=== PATIENT | female | born 2000 | race Caucasian/White ===

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

== ENCOUNTER 2020-08-08 10:41 | Inpatient (IN) | payer BC, OTHER ==
[2020-08-08] MEDS ORDERED: SODIUM CHLORIDE 0.9% 1,000 ML IV STA (10:59)
--- NOTE | 2020-08-08 11:03 | ED ---
Overdose HPI - General Chief Complaint: Overdose Stated Complaint: overdose Time Seen by Provider: 08/08/20 10:47 Source: patient, EMS, RN notes reviewed Mode of arrival: EMS Limitations: no limitations - History of Present Illness Initial Comments: Patient is a 19-year-old female that presents to the emergency department via EMS after ingesting 20 tablets of Midol. This equates to approximately 10 g of acetaminophen. She notes that she has struggled with depression his head attempts in the past at suicide. She notes that increased life stressors such as parents boyfriend problems cause her to have the suicidal thoughts and plan. She denied any pain while sitting up in bed during the exam interview. She noted that she took all the tablets around 9:45 AM this morning. She denied any chest pain short of breath headache nausea vomiting diarrhea constipation fever fatigue chills - Related Data Home Medications Medication Instructions Recorded Confirmed FLUoxetine HCL [PROzac] 20 mg PO HS 08/08/20 08/08/20 Allergies Allergy/AdvReac Type Severity Reaction Status Date / Time Sulfa (Sulfonamide Allergy Nausea & Verified 08/08/20 13:16 Antibiotics) Vomiting & Diarrhea sulfadiazine Allergy Nausea & Verified 08/08/20 13:16 Vomiting & Diarrhea Review of Systems ROS Statement: Those systems with pertinent positive or pertinent negative responses have been documented in the HPI. ROS Other: All systems not noted in ROS Statement are negative. Past Medical History Past Medical History: No Reported History History of Any Multi-Drug Resistant Organisms: None Reported Past Surgical History: No Surgical Hx Reported Past Psychological History: Anxiety, Depression Smoking Status: Never smoker Past Alcohol Use History: None Reported Past Drug Use History: None Reported General Exam Limitations: no limitations General appearance: alert, in no apparent distress, obese Head exam: Present: atraumatic, normocephalic, normal inspection Neck exam: Present: normal inspection. Absent: tenderness, meningismus, lymphadenopathy Respiratory exam: Present: normal lung sounds bilaterally. Absent: respiratory distress, wheezes, rales, rhonchi, stridor Cardiovascular Exam: Present: regular rate, normal rhythm, normal heart sounds. Absent: systolic murmur, diastolic murmur, rubs, gallop, clicks GI/Abdominal exam: Present: soft, normal bowel sounds. Absent: distended, tenderness, guarding, rebound, rigid Extremities exam: Present: normal inspection, full ROM, normal capillary refill. Absent: tenderness, pedal edema, joint swelling, calf tenderness Neurological exam: Present: alert, oriented X3, CN II-XII intact Psychiatric exam: Present: normal affect, depressed, suicidal ideation (With plan) Skin exam: Present: warm, dry, intact, normal color. Absent: rash Course Vital Signs 08/08/20 08/08/20 08/08/20 10:42 12:00 13:00 Temperature 99.1 F Pulse Rate 101 H 98 91 Respiratory 18 18 16 Rate Blood Pressure 128/77 134/81 121/75 O2 Sat by Pulse 98 100 100 Oximetry 08/08/20 14:26 Temperature 99.2 F Pulse Rate 96 Respiratory 18 Rate Blood Pressure 129/72 O2 Sat by Pulse 100 Oximetry Medical Decision Making - Medical Decision Making 19-year-old female with suicidal ideations that took 20 mg of Midol roughly equated 10 g of Tylenol. EKG, 100 mg activated charcoal, acetaminophen level, CBC, CMP, PT/INR and PTT, aspirin level, test, urine drug screen, alcohol serum ordered. Nurse will call poison control for further instructions. Tylenol level IV hours after ingestion 49.2. Patient is cleared to see EPS. Case discussed with Dr. Gurrola - Lab Data Result diagrams: 08/08/20 10:57 08/08/20 10:57 Lab Results 08/08/20 08/08/20 08/08/20 Range/Units 10:57 10:57 10:57 WBC 11.6 H (4.0-11.0) k/uL RBC 4.91 (3.80-5.40) m/uL Hgb 12.6 (11.4-16.0) gm/dL Hct 37.4 (34.0-46.0) % MCV 76.3 L (80.0-100.0) fL MCH 25.7 (25.0-35.0) pg MCHC 33.7 (31.0-37.0) g/dL RDW 13.7 (11.5-15.5) % Plt Count 292 (150-450) k/uL MPV 7.5 Neutrophils % 69 % Lymphocytes % 24 % Monocytes % 4 % Eosinophils % 1 % Basophils % 0 % Neutrophils # 8.0 H (1.3-7.7) k/uL Lymphocytes # 2.8 (1.0-4.8) k/uL Monocytes # 0.5 (0-1.0) k/uL Eosinophils # 0.1 (0-0.7) k/uL Basophils # 0.1 (0-0.2) k/uL PT 10.2 (9.0-12.0) sec INR 0.9 (<1.2) APTT 22.5 (22.0-30.0) sec Sodium 142 (137-145) mmol/L Potassium 3.3 L (3.5-5.1) mmol/L Chloride 107 (98-107) mmol/L Carbon Dioxide 24 (22-30) mmol/L Anion Gap 11 mmol/L BUN 16 (7-17) mg/dL Creatinine 0.79 (0.52-1.04) mg/dL Est GFR (CKD-EPI)AfAm >90 (>60 ml/min/1.73 sqM) Est GFR (CKD-EPI)NonAf >90 (>60 ml/min/1.73 sqM) Glucose 116 H (74-99) mg/dL Calcium 9.2 (8.4-10.2) mg/dL Magnesium (1.6-2.3) mg/dL Total Bilirubin 0.5 (0.2-1.3) mg/dL AST 31 (14-36) U/L ALT 27 (4-34) U/L Alkaline Phosphatase 70 (38-126) U/L Total Protein 7.6 (6.3-8.2) g/dL Albumin 4.6 (3.5-5.0) g/dL Salicylates <1.0 mg/dL Urine Opiates Screen (NotDetected) Ur Oxycodone Screen (NotDetected) Urine Methadone Screen (NotDetected) Ur Propoxyphene Screen (NotDetected) Acetaminophen 82.7 H* ug/mL Ur Barbiturates Screen (NotDetected) U Tricyclic Antidepress (NotDetected) Ur Phencyclidine Scrn (NotDetected) Ur Amphetamines Screen (NotDetected) U Methamphetamines Scrn (NotDetected) U Benzodiazepines Scrn (NotDetected) Urine Cocaine Screen (NotDetected) U Marijuana (THC) Screen (NotDetected) Serum Alcohol <10 mg/dL Influenza Type A (PCR) (Not Detectd) Influenza Type B (PCR) (Not Detectd) RSV (PCR) (Not Detectd) SARS-CoV-2 (PCR) (Not Detectd) 08/08/20 08/08/20 08/08/20 Range/Units 10:57 11:04 14:25 WBC (4.0-11.0) k/uL RBC (3.80-5.40) m/uL Hgb (11.4-16.0) gm/dL Hct (34.0-46.0) % MCV (80.0-100.0) fL MCH (25.0-35.0) pg MCHC (31.0-37.0) g/dL RDW (11.5-15.5) % Plt Count (150-450) k/uL MPV Neutrophils % % Lymphocytes % % Monocytes % % Eosinophils % % Basophils % % Neutrophils # (1.3-7.7) k/uL Lymphocytes # (1.0-4.8) k/uL Monocytes # (0-1.0) k/uL Eosinophils # (0-0.7) k/uL Basophils # (0-0.2) k/uL PT (9.0-12.0) sec INR (<1.2) APTT (22.0-30.0) sec Sodium (137-145) mmol/L Potassium (3.5-5.1) mmol/L Chloride (98-107) mmol/L Carbon Dioxide (22-30) mmol/L Anion Gap mmol/L BUN (7-17) mg/dL Creatinine (0.52-1.04) mg/dL Est GFR (CKD-EPI)AfAm (>60 ml/min/1.73 sqM) Est GFR (CKD-EPI)NonAf (>60 ml/min/1.73 sqM) Glucose (74-99) mg/dL Calcium (8.4-10.2) mg/dL Magnesium 1.9 (1.6-2.3) mg/dL Total Bilirubin (0.2-1.3) mg/dL AST (14-36) U/L ALT (4-34) U/L Alkaline Phosphatase (38-126) U/L Total Protein (6.3-8.2) g/dL Albumin (3.5-5.0) g/dL Salicylates mg/dL Urine Opiates Screen Not Detected (NotDetected) Ur Oxycodone Screen Not Detected (NotDetected) Urine Methadone Screen Not Detected (NotDetected) Ur Propoxyphene Screen Not Detected (NotDetected) Acetaminophen 49.2 ug/mL Ur Barbiturates Screen Not Detected (NotDetected) U Tricyclic Antidepress Not Detected (NotDetected) Ur Phencyclidine Scrn Not Detected (NotDetected) Ur Amphetamines Screen Not Detected (NotDetected) U Methamphetamines Scrn Not Detected (NotDetected) U Benzodiazepines Scrn Detected H (NotDetected) Urine Cocaine Screen Not Detected (NotDetected) U Marijuana (THC) Screen Not Detected (NotDetected) Serum Alcohol mg/dL Influenza Type A (PCR) (Not Detectd) Influenza Type B (PCR) (Not Detectd) RSV (PCR) (Not Detectd) SARS-CoV-2 (PCR) (Not Detectd) 08/08/20 Range/Units Unknown WBC (4.0-11.0) k/uL RBC (3.80-5.40) m/uL Hgb (11.4-16.0) gm/dL Hct (34.0-46.0) % MCV (80.0-100.0) fL MCH (25.0-35.0) pg MCHC (31.0-37.0) g/dL RDW (11.5-15.5) % Plt Count (150-450) k/uL MPV Neutrophils % % Lymphocytes % % Monocytes % % Eosinophils % % Basophils % % Neutrophils # (1.3-7.7) k/uL Lymphocytes # (1.0-4.8) k/uL Monocytes # (0-1.0) k/uL Eosinophils # (0-0.7) k/uL Basophils # (0-0.2) k/uL PT (9.0-12.0) sec INR (<1.2) APTT (22.0-30.0) sec Sodium (137-145) mmol/L Potassium (3.5-5.1) mmol/L Chloride (98-107) mmol/L Carbon Dioxide (22-30) mmol/L Anion Gap mmol/L BUN (7-17) mg/dL Creatinine (0.52-1.04) mg/dL Est GFR (CKD-EPI)AfAm (>60 ml/min/1.73 sqM) Est GFR (CKD-EPI)NonAf (>60 ml/min/1.73 sqM) Glucose (74-99) mg/dL Calcium (8.4-10.2) mg/dL Magnesium (1.6-2.3) mg/dL Total Bilirubin (0.2-1.3) mg/dL AST (14-36) U/L ALT (4-34) U/L Alkaline Phosphatase (38-126) U/L Total Protein (6.3-8.2) g/dL Albumin (3.5-5.0) g/dL Salicylates mg/dL Urine Opiates Screen (NotDetected) Ur Oxycodone Screen (NotDetected) Urine Methadone Screen (NotDetected) Ur Propoxyphene Screen (NotDetected) Acetaminophen ug/mL Ur Barbiturates Screen (NotDetected) U Tricyclic Antidepress (NotDetected) Ur Phencyclidine Scrn (NotDetected) Ur Amphetamines Screen (NotDetected) U Methamphetamines Scrn (NotDetected) U Benzodiazepines Scrn (NotDetected) Urine Cocaine Screen (NotDetected) U Marijuana (THC) Screen (NotDetected) Serum Alcohol mg/dL Influenza Type A (PCR) Not Detected (Not Detectd) Influenza Type B (PCR) Not Detected (Not Detectd) RSV (PCR) Not Detected (Not Detectd) SARS-CoV-2 (PCR) Not Detected (Not Detectd) - EKG Data -: EKG Interpreted by Ia EKG shows normal: sinus rhythm Rate: tachycardia EKG Comments: Ventricular rate 106 bpm, OK interval 120 ms, QRS duration 88 ms, QT/QTc 422/560 ms, PRT axes 67/34/18. Sinus tachycardia, otherwise normal ECG. Disposition Clinical Impression: Acetaminophen overdose, Suicide attempt Disposition: ADMITTED IP TO THIS HOSP Condition: Stable Instructions (If sedation given, give patient instructions): Adult Overdose (ED) Is patient prescribed a controlled substance at d/c from ED?: No Referrals: Cal Champion MD [Primary Care Provider] - 1-2 days Time of Disposition: 15:51
[2020-08-08 11:16] LABS: Basophils # (A) 0.1 k/uL (0-0.2); Basophils % (A) 0 %; Eosinophils # (A) 0.1 k/uL (0-0.7); Eosinophils % (A) 1 %; HCT 37.4 % (34.0-46.0); HGB 12.6 gm/dL (11.4-16.0); Lymphocytes # (A) 2.8 k/uL (1.0-4.8); Lymphocytes % (A) 24 %; MCH 25.7 pg (25.0-35.0); MCHC 33.7 g/dL (31.0-37.0); MCV 76.3 fL (80.0-100.0); Mean Platelet Volume 7.5; Monocytes # (A) 0.5 k/uL (0-1.0); Monocytes % (A) 4 %; Neutrophils % (A) 69 %; Platelet Count 292 k/uL (150-450); RBC 4.91 m/uL (3.80-5.40); RDW 13.7 % (11.5-15.5); WBC 11.6 k/uL (4.0-11.0)
[2020-08-08 11:39] LABS: ALT 27 U/L (4-34); AST 31 U/L (14-36); African American GFR (CKD) >90 (>60 ml/min/1.73 sqM); Albumin 4.6 g/dL (3.5-5.0); Alcohol <10 mg/dL; Alkaline Phosphatase 70 U/L (38-126); Anion Gap 11 mmol/L; Blood Urea Nitrogen 16 mg/dL (7-17); Calcium 9.2 mg/dL (8.4-10.2); Carbon Dioxide 24 mmol/L (22-30); Chloride 107 mmol/L (98-107); Glucose 116 mg/dL (74-99); Non-African American GFR(CKD) >90 (>60 ml/min/1.73 sqM); Potassium 3.3 mmol/L (3.5-5.1); Salicylate <1.0 mg/dL; Sodium 142 mmol/L (137-145); Total Bilirubin 0.5 mg/dL (0.2-1.3); Total Protein 7.6 g/dL (6.3-8.2)
[2020-08-08 11:43] LABS: Acetaminophen 82.7 ug/mL
[2020-08-08 11:57] LABS: INR 0.9 (<1.2); Partial Thromboplastin Time 22.5 sec (22.0-30.0); Prothrombin Time 10.2 sec (9.0-12.0)
[2020-08-08] MEDS ORDERED: POTASSIUM CHLORIDE ER 20 MEQ TAB.ER PO STA (12:00)
[2020-08-08 15:41] LABS: Amphetamine Screen,Urine Not Detected (NotDetected); Barbiturate Screen,Urine Not Detected (NotDetected); Benzodiazepines Screen,Urine Detected (NotDetected); Cocaine Screen,Urine Not Detected (NotDetected); Methadone Screen, Urine Not Detected (NotDetected); Opiate Screen,Urine Not Detected (NotDetected); Oxycodone Screen, Urine Not Detected (NotDetected); Phencyclidine Screen,Urine Not Detected (NotDetected); Tricyclic Antidepressant,Urine Not Detected (NotDetected); Urn Cannabinoid Scrn Not Detected (NotDetected)
[2020-08-08] MEDS ORDERED: MAG HYDROX/AL HYDROX/SIMETH 30 ML CUP PO PRN (19:28)
[2020-08-08] MEDS ORDERED: ACETAMINOPHEN TAB 325 MG TAB PO PRN (19:28)
[2020-08-08] MEDS ORDERED: LORazepam 1 MG TAB PO PRN (19:28)
[2020-08-08] MEDS ORDERED: MAGNESIUM HYDROXIDE 2,400 MG/10 ML CUP PO PRN (19:28)
[2020-08-08] MEDS ORDERED: LORazepam 2 MG/ML INJ IM PRN (19:31)
[2020-08-08] MEDS ORDERED: HALOPERIDOL LACTATE 5 MG/ML 1 ML VIAL IM PRN (19:31)
[2020-08-08] MEDS ORDERED: FLUoxetine HCL 20 MG CAP PO SCH (21:00)
[2020-08-09] MEDS: NICOTINE 14MG/24HR PATCH TRANSDERM SCH (08:13)
--- NOTE | 2020-08-09 11:27 | P.HP ---
Psychiatric H&P - . H&P Date: 08/09/20 History & Physical: Allergies Allergy/AdvReac Type Severity Reaction Status Date / Time Sulfa (Sulfonamide Allergy Nausea & Verified 08/08/20 13:16 Antibiotics) Vomiting & Diarrhea sulfadiazine Allergy Nausea & Verified 08/08/20 13:16 Vomiting & Diarrhea Vital Signs Temp 99.1 F 08/08/20 20:31 Pulse 86 08/08/20 20:31 Resp 16 08/08/20 20:31 BP 129/76 08/08/20 20:31 Pulse Ox 95 08/08/20 19:31 Intake & Output 08/08/20 08/09/20 08/09/20 18:59 06:59 18:59 Weight 90.718 kg 90.9 kg Laboratory Last Values WBC 11.6 k/uL (4.0-11.0) H 08/08/20 10:57 RBC 4.91 m/uL (3.80-5.40) 08/08/20 10:57 Hgb 12.6 gm/dL (11.4-16.0) 08/08/20 10:57 Hct 37.4 % (34.0-46.0) 08/08/20 10:57 MCV 76.3 fL (80.0-100.0) L 08/08/20 10:57 MCH 25.7 pg (25.0-35.0) 08/08/20 10:57 MCHC 33.7 g/dL (31.0-37.0) 08/08/20 10:57 RDW 13.7 % (11.5-15.5) 08/08/20 10:57 Plt Count 292 k/uL (150-450) 08/08/20 10:57 MPV 7.5 08/08/20 10:57 Neutrophils % 69 % 08/08/20 10:57 Lymphocytes % 24 % 08/08/20 10:57 Monocytes % 4 % 08/08/20 10:57 Eosinophils % 1 % 08/08/20 10:57 Basophils % 0 % 08/08/20 10:57 Neutrophils # 8.0 k/uL (1.3-7.7) H 08/08/20 10:57 Lymphocytes # 2.8 k/uL (1.0-4.8) 08/08/20 10:57 Monocytes # 0.5 k/uL (0-1.0) 08/08/20 10:57 Eosinophils # 0.1 k/uL (0-0.7) 08/08/20 10:57 Basophils # 0.1 k/uL (0-0.2) 08/08/20 10:57 PT 10.2 sec (9.0-12.0) 08/08/20 10:57 INR 0.9 (<1.2) 08/08/20 10:57 APTT 22.5 sec (22.0-30.0) 08/08/20 10:57 Sodium 142 mmol/L (137-145) 08/08/20 10:57 Potassium 3.3 mmol/L (3.5-5.1) L 08/08/20 10:57 Chloride 107 mmol/L (98-107) 08/08/20 10:57 Carbon Dioxide 24 mmol/L (22-30) 08/08/20 10:57 Anion Gap 11 mmol/L 08/08/20 10:57 BUN 16 mg/dL (7-17) 08/08/20 10:57 Creatinine 0.79 mg/dL (0.52-1.04) 08/08/20 10:57 Est GFR (CKD-EPI)AfAm >90 (>60 ml/min/1.73 sqM) 08/08/20 10:57 Est GFR (CKD-EPI)NonAf >90 (>60 ml/min/1.73 sqM) 08/08/20 10:57 Glucose 116 mg/dL (74-99) H 08/08/20 10:57 Calcium 9.2 mg/dL (8.4-10.2) 08/08/20 10:57 Magnesium 1.9 mg/dL (1.6-2.3) 08/08/20 10:57 Total Bilirubin 0.5 mg/dL (0.2-1.3) 08/08/20 10:57 AST 31 U/L (14-36) 08/08/20 10:57 ALT 27 U/L (4-34) 08/08/20 10:57 Alkaline Phosphatase 70 U/L (38-126) 08/08/20 10:57 Total Protein 7.6 g/dL (6.3-8.2) 08/08/20 10:57 Albumin 4.6 g/dL (3.5-5.0) 08/08/20 10:57 Salicylates <1.0 mg/dL 08/08/20 10:57 Urine Opiates Screen Not Detected (NotDetected) 08/08/20 11:04 Ur Oxycodone Screen Not Detected (NotDetected) 08/08/20 11:04 Urine Methadone Screen Not Detected (NotDetected) 08/08/20 11:04 Ur Propoxyphene Screen Not Detected (NotDetected) 08/08/20 11:04 Acetaminophen 49.2 ug/mL 08/08/20 14:25 Ur Barbiturates Screen Not Detected (NotDetected) 08/08/20 11:04 U Tricyclic Antidepress Not Detected (NotDetected) 08/08/20 11:04 Ur Phencyclidine Scrn Not Detected (NotDetected) 08/08/20 11:04 Ur Amphetamines Screen Not Detected (NotDetected) 08/08/20 11:04 U Methamphetamines Scrn Not Detected (NotDetected) 08/08/20 11:04 U Benzodiazepines Scrn Detected (NotDetected) H 08/08/20 11:04 Urine Cocaine Screen Not Detected (NotDetected) 08/08/20 11:04 U Marijuana (THC) Screen Not Detected (NotDetected) 08/08/20 11:04 Serum Alcohol <10 mg/dL 08/08/20 10:57 Influenza Type A (PCR) Not Detected (Not Detectd) 08/08/20 Unknown Influenza Type B (PCR) Not Detected (Not Detectd) 08/08/20 Unknown RSV (PCR) Not Detected (Not Detectd) 08/08/20 Unknown SARS-CoV-2 (PCR) Not Detected (Not Detectd) 08/08/20 Unknown 08/09/20 11:17 IDENTIFYING DATA: Patient is a single, employed, 19-year-old female who was admitted for intentional overdose. HPI: Patient presented to the hospital on 08/08/2020, brought in by EMS after ingesting approximately 20 tablets of Midol. The patient reports that she has been "very stressed out lately and just had an argument with my boyfriend." She reports that when she awoke in the [employer], she was feeling increasingly guilty, depressed, and sad, and noted that the pills were within her reach in her bedroom. It is and that she decided to overdose if taking 2 pills at a time with the intention of killing herself. The patient reports multiple stressors that have been contributing to her low mood. She states that the divorce between her stepfather and her mother has been difficult for her and that her boyfriend has been very controlling causing her to isolate herself from making any friends, especially male friends. The patient endorses significant symptoms of depression including anhedonia, low energy, excessive sleep, crying episodes, and feeling hopeless. She reports that she has actually not been expressing any suicidal ideation except for yesterday morning when she overdosed on the Midol. The patient reports one prior attempt at suicide in her sophomore year by overdose. The patient does not endorse any significant history of bipolar disorder. She denies any episodes of ivette or hypomania. She denies any increased goal-directed activity, periods of excessive energy, or pressured speech. The patient is not reporting any significant history of psychosis. She reports no auditory or visual hallucinations. She denies any paranoia or other delusions. In regards to trauma, the patient is not reporting any significant history of physical, emotional, or sexual abuse. She denies any traumatic events in her life for history of TBI. The patient does describe herself as an anxious individual but states that it has been manageable and has not stopped her from performing her ADLs. PAST PSYCHIATRIC HISTORY: Patient states that she has been diagnosed with depression. Patient only recalls being prescribed Prozac 20 milligrams daily by her primary care physician. Patient denies any previous psychiatric hospitalizations. Patient denies any psychiatric outpatient follow-up. The patient does report one prior attempt at suicide when she was in the 10th grade by overdose. PMH: Past Medical History: No Reported History History of Any Multi-Drug Resistant Organisms: None Reported Past Surgical History: No Surgical Hx Reported Past Psychological History: Anxiety, Depression Smoking Status: Never smoker Past Alcohol Use History: None Reported Past Drug Use History: None Reported ALLERGIES: Sulfa CHEMICAL DEPENDENCY HISTORY: The patient denies any tobacco, alcohol, cannabis, or illicit drug use. FAMILY PSYCHIATRIC/SUBSTANCE USE HISTORY: The patient reports that her mother previously overdosed when she was younger but survived. The patient also reports that her maternal grandmother was an alcoholic. SOCIAL HISTORY: Patient was born and raised in [place], [place]. She is currently single, never , and has no children. She has been living with her boyfriend and 2 cats. 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 She graduated high school and is currently in her first year of studying nursing. MENTAL STATUS EXAM: General Appearance: Patient appears to be stated age is alert, directable, and attempts to cooperate. Patient appears to have fair hygiene and grooming. Behavior: Patient is seated without any agitated behavior. Eye contact is intermittent. Speech: Patient's speech is fluent and nonpressured. Spontaneous, monotone, with normal volume. Mood/Affect: Patient reports their mood is depressed, affect is congruent, withdrawn and blunted. Suicidality/Homicidality: Patient is currently denying any suicidal or homicidal ideation, intention, and/or plan. Perceptions: Patient denies any visual hallucinations and denies any auditory hallucinations Though content/process: There is no evidence of any delusional thought content and thought process is linear and goal-directed. Memory and concentration: AOX3, grossly intact for the purposes of this session. Can spell "WORLD" backwards Judgment and insight: Fair STRENGTHS/WEAKNESSES: Strength is that the patient is future oriented, has a stable job, is currently in school, and has stable housing. Weakness is that the patient has poor coping skills. INTELLECT: average IMPRESSIONS: Major depressive disorder, recurrent, severe Cluster B personality traits PLAN: -Patient is admitted under voluntary status to [facility] for stabilization of psychiatric symptoms and safety. Patient signed adult voluntary form and medication consent and is placed in patient's chart. -Medications : We will increase the patient's Prozac to 30 mg by mouth every at bedtime for depression/anxiety -Recommend dialectical behavioral therapy as a treatment modality in the outpatient setting. -Ativan and Haldol PRN for agitation/aggression -Patient was informed of the risks, benefits and side effects of the medication and patient verbally consented to taking the medications. Patient signed med consent form and was placed in chart. -Internal Medicine consult to perform medical evaluation and physical. -SW on board for discharge planning. Encourage patient to participate in groups to work on coping skills.
[2020-08-09 11:45] LABS: Cholesterol 172 mg/dL (<200); HDL Cholesterol 39 mg/dL (40-60); LDL Cholesterol,Calculated 114 mg/dL (0-99); Triglycerides 95 mg/dL (<150)
[2020-08-09 11:46] VITALS: BMI 37.8
[2020-08-09] MEDS ORDERED: FLUoxetine HCL 10 MG CAP PO SCH (21:00)
[2020-08-09 21:19] LABS: Hemoglobin A1C 5.5 % (4.0-6.0)
[2020-08-10 08:28] VITALS: BP 132/77; PULSE 95; RESP 18; TEMP 98
[2020-08-10] MEDS: NICOTINE 14MG/24HR PATCH TRANSDERM SCH (08:28)
--- NOTE | 2020-08-10 11:00 | P.DS ---
Providers Date of admission: 08/08/20 19:26 Expected date of discharge: 08/10/20 Attending physician: Agustin Lino MD Consults: 08/09/20 09:54 Consult Physician Routine Consulting Provider: Kasandra Chery Consult Reason/Comments: New Admission H & P Do you want consulting provider notified?: Already Contacted Primary care physician: Cal Champion - Discharge Diagnosis(es) (1) Major depressive disorder Current Visit: Yes Status: Acute Priority: High (2) Cluster B personality disorder Current Visit: Yes Status: Chronic Priority: Medium Hospital Course: Admission HPI: Patient is a single, employed, 19-year-old female who was admitted for intentional overdose. Patient presented to the hospital on 08/08/2020, brought in by EMS after ingesti ng approximately 20 tablets of Midol. 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 It is and that she decided to overdose if taking 2 pills at a time with the intention of killing herself. The patient reports multiple stressors that have been contributing to her low mood. She states that the divorce between her stepfather and her mother has been difficult for her and that her boyfriend has been very controlling causing her to isolate herself from making any friends, especially male friends. The patient endorses significant symptoms of depression including anhedonia, low energy, excessive sleep, crying episodes, and feeling hopeless. She reports that she has actually not been expressing any suicidal ideation except for yesterday morning when she overdosed on the Midol. The patient reports one prior attempt at suicide in her sophomore year by overdose. The patient does not endorse any significant history of bipolar disorder. She denies any episodes of ivette or hypomania. She denies any increased goal-directed activity, periods of excessive energy, or pressured speech. The patient is not reporting any significant history of psychosis. She reports no auditory or visual hallucinations. She denies any paranoia or other delusions. In regards to trauma, the patient is not reporting any significant history of physical, emotional, or sexual abuse. She denies any traumatic events in her life for history of TBI. The patient does describe herself as an anxious individual but states that it has been manageable and has not stopped her from performing her ADLs. Patient states that she has been diagnosed with depression. Patient only recalls being prescribed Prozac 20 milligrams daily by her primary care physician. Patient denies any previous psychiatric hospitalizations. Patient denies any psychiatric outpatient follow-up. The patient does report one prior attempt at suicide when she was in the 10th grade by overdose. Hospital course: Upon admission to the unit patient was initially presenting with remorse for her actions and somewhat elevated anxiety. Patient was however directable and agreeable to commence treatment. Patient got along well with other patients on the unit and followed unit protocol. Patient was compliant with the medications and denied any side effects throughout hospital course. Patient was started on her home medication of Prozac which was increased to 30 mg by mouth daily. Patient spoke of her stressors and engaged in therapy both group and individual. Patient was also seen by medical team for history and physical exam. This provider also discussed at length dialectical behavioral therapy concepts and worked on developing ego integrity and coping skills with this patient. Over the course of hospitalization, the patient gradually improved in regards to her insight, coping skills, judgment, and overall mood. On day of discharge, the patient is not reporting any suicidal or homicidal ideation, intention, and/or plan. She is not reporting any auditory or visual hallucinations. She denies any access to firearms or other weapons. She reports wanting to live for herself and for her family. She denies any firearms or other weapons. She denies any paranoia or other delusions. Patient does not have any significant history of substance abuse however was counseled on abstaining from all substances including alcohol and marijuana. Patient was also counseled on her medications and need for adequate compliance with appropriate outpatient follow- up. The patient was also encouraged to attend psychotherapy in the outpatient setting. Prior to discharge, family meeting will be arranged by social worker health services to answer any questions and ensure safety. Mental status exam: General Appearance: Patient appears to be stated age is alert, pleasant, and cooperative. Patient is in no acute distress and has fair hygiene and grooming. Patient has long black hair engine obese body habitus.. Behavior: Patient is calmly seated without any agitated behavior. Eye contact is appropriate. Normal psychomotor activity. Speech: Patient's speech is fluent and nonpressured. Speech is spontaneous, with normal rate, tone, volume. Mood/Affect: Patient reports their mood is "much better", affect is congruent and euthymic to bright. Suicidality/Homicidality: Patient denies having any suicidal or homicidal ideation intent or plan. Perceptions: Patient denies any auditory or visual hallucinations. Though content/process: There is no evidence of any delusional thought content a nd thought process is linear and goal-directed. The patient is future oriented. Memory and concentration: AOX3, grossly intact for the purposes of this session. Can spell "WORLD" backwards correctly. Judgment and insight: Improved Impression: Major depressive disorder, recurrent, severe Cluster B personality traits Plan: -Continue with discharge today as patient has improved and stabilized p sychiatrically and is not currently an imminent threat to herself or others. The patient remains future oriented, has stable housing, supportive family, and is currently gainfully employed. She also engages in no significant substance abuse. -Continue medications: Prozac 30 mg by mouth daily for depression/anxiety. -Patient was counseled on the need for medication compliance and appropriate follow-up at mental health and also primary care for medical issues. Patient verbalized understanding and agreed. -Social work to arrange for and conduct family meeting to ensure safety upon discharge and answer any questions/concerns. Social work also to arrange for [facility] along with follow up with primary care provider. -Patient counseled on abstaining from recreational drugs and marijuana and alcohol. Was informed/educated on the adverse effects on their physical and mental health. Patient verbally agreed and understood. -Patient was instructed to return to the hospital or seek immediate medical care if their psychiatric or medical symptoms do worsen or reoccur. -Psychoeducation and supportive therapy provided to patient. Risks and benefits of pharmacological treatment versus the risks and benefits of nontreatment weight and discussed. Informed consent discussion held. Common side effects of psychotropics discussed such as, but not limited to headache, GI disturbance, sexual dysfunction, movement disorders, sedation, and orthostatic hypotension. Life threatening and blackbox warnings of prescribed medications also discussed. Potential risks of operating a vehicle or heavy machinery discussed with patient at length. Advised on importance of compliance and a reliable and responsible manner. Patient advised to review FDA consumer labeling of all medications prior to taking. Patient verbalized understanding of potential risks, and agrees with current treatment plan. Patient advised to medically contact physician/emergency personnel if any acute changes in condition occur. Vital Signs Temp 98.0 F 08/10/20 08:20 Pulse 95 08/10/20 08:20 Resp 18 08/10/20 08:20 BP 132/77 08/10/20 08:20 Pulse Ox 95 08/08/20 19:31 Intake & Output 08/09/20 08/10/20 08/10/20 18:59 06:59 18:59 Weight 90.9 kg Laboratory Results WBC 11.6 k/uL (4.0-11.0) H 08/08/20 10:57 RBC 4.91 m/uL (3.80-5.40) 08/08/20 10:57 Hgb 12.6 gm/dL (11.4-16.0) 08/08/20 10:57 Hct 37.4 % (34.0-46.0) 08/08/20 10:57 MCV 76.3 fL (80.0-100.0) L 08/08/20 10:57 MCH 25.7 pg (25.0-35.0) 08/08/20 10:57 MCHC 33.7 g/dL (31.0-37.0) 08/08/20 10:57 RDW 13.7 % (11.5-15.5) 08/08/20 10:57 Plt Count 292 k/uL (150-450) 08/08/20 10:57 MPV 7.5 08/08/20 10:57 Neutrophils % 69 % 08/08/20 10:57 Lymphocytes % 24 % 08/08/20 10:57 Monocytes % 4 % 08/08/20 10:57 Eosinophils % 1 % 08/08/20 10:57 Basophils % 0 % 08/08/20 10:57 Neutrophils # 8.0 k/uL (1.3-7.7) H 08/08/20 10:57 Lymphocytes # 2.8 k/uL (1.0-4.8) 08/08/20 10:57 Monocytes # 0.5 k/uL (0-1.0) 08/08/20 10:57 Eosinophils # 0.1 k/uL (0-0.7) 08/08/20 10:57 Basophils # 0.1 k/uL (0-0.2) 08/08/20 10:57 PT 10.2 sec (9.0-12.0) 08/08/20 10:57 INR 0.9 (<1.2) 08/08/20 10:57 APTT 22.5 sec (22.0-30.0) 08/08/20 10:57 Sodium 142 mmol/L (137-145) 08/08/20 10:57 Potassium 3.3 mmol/L (3.5-5.1) L 08/08/20 10:57 Chloride 107 mmol/L (98-107) 08/08/20 10:57 Carbon Dioxide 24 mmol/L (22-30) 08/08/20 10:57 Anion Gap 11 mmol/L 08/08/20 10:57 BUN 16 mg/dL (7-17) 08/08/20 10:57 Creatinine 0.79 mg/dL (0.52-1.04) 08/08/20 10:57 Est GFR (CKD-EPI)AfAm >90 (>60 ml/min/1.73 sqM) 08/08/20 10:57 Est GFR (CKD-EPI)NonAf >90 (>60 ml/min/1.73 sqM) 08/08/20 10:57 Glucose 116 mg/dL (74-99) H 08/08/20 10:[address] Glu mg/dL 111 08/09/20 06:49 Hemoglobin A1c 5.5 % (4.0-6.0) 08/09/20 06:49 Calcium 9.2 mg/dL (8.4-10.2) 08/08/20 10:57 Magnesium 1.9 mg/dL (1.6-2.3) 08/08/20 10:57 Total Bilirubin 0.5 mg/dL (0.2-1.3) 08/08/20 10:57 AST 31 U/L (14-36) 08/08/20 10:57 ALT 27 U/L (4-34) 08/08/20 10:57 Alkaline Phosphatase 70 U/L (38-126) 08/08/20 10:57 Total Protein 7.6 g/dL (6.3-8.2) 08/08/20 10:57 Albumin 4.6 g/dL (3.5-5.0) 08/08/20 10:57 Triglycerides 95 mg/dL (<150) 08/09/20 06:49 Cholesterol 172 mg/dL (<200) 08/09/20 06:49 LDL Cholesterol, Calc 114 mg/dL (0-99) H 08/09/20 06:49 HDL Cholesterol 39 mg/dL (40-60) L 08/09/20 06:49 TSH 1.150 mIU/L (0.465-4.680) 08/09/20 06:49 Salicylates <1.0 mg/dL 08/08/20 10:57 Urine Opiates Screen Not Detected (NotDetected) 08/08/20 11:04 Ur Oxycodone Screen Not Detected (NotDetected) 08/08/20 11:04 Urine Methadone Screen Not Detected (NotDetected) 08/08/20 11:04 Ur Propoxyphene Screen Not Detected (NotDetected) 08/08/20 11:04 Acetaminophen 49.2 ug/mL 08/08/20 14:25 Ur Barbiturates Screen Not Detected (NotDetected) 08/08/20 11:04 U Tricyclic Antidepress Not Detected (NotDetected) 08/08/20 11:04 Ur Phencyclidine Scrn Not Detected (NotDetected) 08/08/20 11:04 Ur Amphetamines Screen Not Detected (NotDetected) 08/08/20 11:04 U Methamphetamines Scrn Not Detected (NotDetected) 08/08/20 11:04 U Benzodiazepines Scrn Detected (NotDetected) H 08/08/20 11:04 Urine Cocaine Screen Not Detected (NotDetected) 08/08/20 11:04 U Marijuana (THC) Screen Not Detected (NotDetected) 08/08/20 11:04 Serum Alcohol <10 mg/dL 08/08/20 10:57 Influenza Type A (PCR) Not Detected (Not Detectd) 08/08/20 Unknown Influenza Type B (PCR) Not Detected (Not Detectd) 08/08/20 Unknown RSV (PCR) Not Detected (Not Detectd) 08/08/20 Unknown SARS-CoV-2 (PCR) Not Detected (Not Detectd) 08/08/20 Unknown Allergies Allergy/AdvReac Type Severity Reaction Status Date / Time Sulfa (Sulfonamide Allergy Nausea & Verified 08/08/20 13:16 Antibiotics) Vomiting & Diarrhea sulfadiazine Allergy Nausea & Verified 08/08/20 13:16 Vomiting & Diarrhea Patient Condition at Discharge: Stable Plan - Discharge Summary Discharge Rx Participant: No New Discharge Prescriptions: New FLUoxetine HCL [PROzac] 30 mg PO HS 30 Days #30 cap Discontinued FLUoxetine HCL [PROzac] 20 mg PO HS Discharge Medication List FLUoxetine HCL [PROzac] 30 mg PO HS 30 Days #30 cap 08/10/20 [Rx] Follow up Appointment(s)/Referral(s): [facility] - 08/17/20 6:30 pm (Jennifer Lucero) Cal Champion MD [Primary Care Provider] - 1-2 days Patient Instructions/Handouts: Depression (DC), Adult Overdose (ED) Activity/Diet/Wound Care/Special Instructions: Activity and diet as tolerated. Avoid the use of street drugs and alcohol. Take all medications as prescribed. When you are in need of refills on your medications please contact your medical provider and/or outpatient psychiatrist to have this done. Please go to scheduled outpatient appointment for aftercare treatment. If symptoms return or become worse, call the crisis line at and/or go to the nearest emergency room for evaluation. Discharge Disposition: HOME SELF-CARE
--- NOTE | 2020-08-10 12:24 | P.MDCNMH ---
<Aldair Burton - Last Filed: 08/10/20 12:07> History of Present Illness H&P Date: 08/10/20 History of presenting illness: Patient is a 19-year-old female with a past medical history of depression. She is currently admitted to inpatient mental health unit under psychiatry team for suicidal ideation status post suicidal attempt after reportedly ingesting 20 tablets of Midol. Patient seen and fully evaluated. She reports that her life is very stressful and has multiple triggers which has caused a significant increase in her depression over the past few months. Patient reports history of previous suicide in high school also via intentional overdose/congestion of OTC medications. Patient denies having any headache, lightheadedness, dizziness, changes in her vision or hearing, chest pain or palpitations, shortness of breath or cough, abdominal pain, changes in appetite, nausea, vomiting, changes in her difficulties with urinary or bowel function, or experiencing any n umbness/tingling/weakness in her extremities. Patient denies having any visual, auditory, or tactile hallucinations. Review of systems: Pertinent positives and negatives as discussed in HPI, a complete review of systems was performed and all other systems are negative. Physical exam: General: non toxic, no distress, appears at stated age Derm: warm, dry Head: atraumatic, normocephalic, symmetric Eyes: EOMI, no lid lag, anicteric sclera Mouth: no lip lesion, mucus membranes moist Cardiovascular: S1S2 reg, no murmur, positive posterior tibial pulse bilateral, Lungs: CTA bilateral, no rhonchi, no rales , no accessory muscle use Abdominal: soft, nontender to palpation, no guarding, no appreciable organomegaly Ext: no gross muscle atrophy, no edema, no contractures Neuro: CN II-XI grossly intact, no focal neuro deficits Psych: Alert, oriented, appropriate affect Plan of care: Depression -Fluoxetine increased by psychiatry to 30 mg daily for treatment of her anxiety and depression. Suicidal attempt with intentional ingestion of Midol (equivalent to 10 g of Tylenol) -Initial Acetaminophen level 82.7 with repeat of 49.2 on 08/08/20. -Suicidal precautions to continue. -Management per primary admitting psychiatric team. Thank you for allowing us to participate in the care of this pleasant patient. Do not hesitate to contact us with questions. We will follow on an as-needed basis, RN to notify provider with needs. Someone can be reached from the [facility] [place] hospitalist group all hours of the day at [phone] or via [employer]. Review of Systems Constitutional: Reports as per HPI Past Medical History Past Medical History: No Reported History Additional Past Medical History / Comment(s): Pt reports she has "undiagnosed IBS" History of Any Multi-Drug Resistant Organisms: None Reported Past Surgical History: No Surgical Hx Reported Past Anesthesia/Blood Transfusion Reactions: No Reported Reaction Past Psychological History: Anxiety, Depression Smoking Status: Never smoker Past Alcohol Use History: None Reported Past Drug Use History: None Reported Medications and Allergies Home Medications Medication Instructions Recorded Confirmed Type FLUoxetine HCL [PROzac] 30 mg PO HS 30 Days #30 cap 08/10/20 Rx Allergies Allergy/AdvReac Type Severity Reaction Status Date / Time Sulfa (Sulfonamide Allergy Nausea & Verified 08/08/20 13:16 Antibiotics) Vomiting & Diarrhea sulfadiazine Allergy Nausea & Verified 08/08/20 13:16 Vomiting & Diarrhea Physical Exam Vitals: Vital Signs Temp Pulse Resp BP 08/10/20 08:20 98.0 F 95 18 132/77 - Constitutional General appearance: average body habitus, cooperative, no acute distress - EENT Eyes: anicteric sclerae, EOMI, dentition normal, normal appearance - Neck Neck: normal ROM - Respiratory Respiratory: bilateral: CTA - Cardiovascular Rhythm: regular Cranial Nerve Examination - Cranial Nerves Cranial Nerve I- Olfactory: Intact Cranial Nerve II- Optic: Intact Cranial Nerve III- Oculomotor: Intact Cranial Nerve IV- Trochlear: Intact Cranial Nerve V- Trigeminal: Intact Cranial Nerve - Abducens: Intact Cranial Nerve VII- Facial: Intact Cranial Nerve VIII- Auditory: Intact Cranial Nerve IX- Glossopharyngeal: Intact Cranial Nerve X- Vagus: Intact Cranial Nerve XI- Accessory: Intact Cranial Nerve XII- Hypoglossal: Intact Results CBC & Chem 7: 08/08/20 10:57 08/08/20 10:57 <Melody Hou - Last Filed: 08/10/20 19:25> History of Present Illness I discussed the care with Aldair Burton NP and reviewed the findings and plan as documented in the note above. I did not physically speak with or examine the patient on this date. Physical Exam Osteopathic Statement: *. No significant issues noted on an osteopathic structural exam other than those noted in the History and Physical/Consult. Vitals: Vital Signs Temp Pulse Resp BP 08/10/20 08:20 98.0 F 95 18 132/77 Results CBC & Chem 7: 08/08/20 10:57 08/08/20 10:57
== END 2020-08-10 12:15 | disposition home or self-care (01) | DRG 885 ==
LOC: EC 10:41 → 3MHU 19:26
PROVIDERS: ADMIT Psychiatry & Neurology Psychiatry; ATTEND Psychiatry & Neurology Psychiatry
DX: F33.2 Major depressive disorder, recurrent severe without psychotic features (principal); F60.89 Other specific personality disorders; F41.9 Anxiety disorder, unspecified; E66.9 Obesity, unspecified; T39.1X2A Poisoning by 4-Aminophenol derivatives, intentional self-harm, initial encounter; Z79.899 Other long term (current) drug therapy; Z81.1 Family history of alcohol abuse and dependence; Z68.37 Body mass index [BMI] 37.0-37.9, adult
CPT/HCPCS: 36415; 80053; 80061; 80143; 80179; 80306; 80320; 82075; 83036; 83735; 84443; 85025; 85610; 85730; 87636; 93005; 99285